=== PATIENT | male | born 1990 | race African-American/Black ===

== ENCOUNTER → 2024-04-27 | Outpatient (CLI) | payer BC | END | disposition home or self-care (01) | LOC: ORTHO 09:26 | PROVIDERS: ATTEND Orthopaedic Surgery | DX: M25.522 Pain in left elbow (principal) ==

== ENCOUNTER → 2024-05-31 | Day surgery (SDC) | payer BC ==
[2024-05-30 14:11] LABS: BUN 14 mg/dl (9-23); CHLORIDE 107 mmol/L (98-107); POTASSIUM 4.3 mmol/L (3.4-5.1)
[~2024-05-31] VITALS: Ht 182.8 cm; Wt 99.8 kg
[~2024-05-31] MED LIST: BUPIVACAINE 0.5% 30 ML IV ONE; Dexamethasone Sodium Phospha 4 MG/ML VIAL IV ONE; HYDROCODONE-AC1 EAC1 PO; Ketorolac Tromethamine 30 MG/ML VIAL IV ONE; Lactated Ringer's Solution 500 ML IV ONE; Lidocaine Hydrochloride 30 ML VIAL ONE; Lidocaine Hydrochloride 5 ML VIAL IV ONE; Midazolam Hydrochloride 2 MG/2 ML VIAL IV ONE; Ondansetron Hydrochloride 4 MG/2 ML VIAL IV ONE; PROPOFOL 200 MG/20 ML VIAL IV ONE; SEVOFLURANE 250 ML BOT INH ONE; ceFAZolin sodium/sodium chlor 10 ML IV ONE; fentaNYL CITRATE 100 MCG/2 ML VIAL IV ONE
[2024-05-31 07:00] VITALS: BP 144/79
[2024-05-31 09:13] VITALS: BP 117/70
[2024-05-31 09:30] VITALS: BP 139/83
[2024-05-31 09:45] VITALS: BP 139/91
[2024-05-31 10:00] VITALS: BP 132/85
[2024-05-31 10:15] VITALS: BP 130/80
== END | disposition home or self-care (01) ==
LOC: SDC 05-27 11:00
PROVIDERS: ATTEND Orthopaedic Surgery
DX: G56.22 Lesion of ulnar nerve, left upper limb (principal); Z98.890 Other specified postprocedural states